=== PATIENT | female | born 2000 | race Caucasian/White ===

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

== ENCOUNTER 2021-03-01 09:47 | Observation (INO) | payer OTHER ==
[2021-03-01] MEDS ORDERED: DIPHTH,PERTUSS(ACELL),TET 0.5 ML DISP.SYRIN IM ONE ×2 (10:23→10:44)
[2021-03-01] MEDS ORDERED: MIDAZOLAM HCL 2 MG/2 ML SINGLE DOSE VIAL IM ONE (10:32)
[2021-03-01] MEDS ORDERED: LORazepam 2 MG/ML SDV VIAL IM ONE (10:34)
[2021-03-01] MEDS ORDERED: LORazepam 2 MG/ML SDV VIAL ONE ×2 (10:44→10:57)
[2021-03-01] MEDS ORDERED: LORazepam 2 MG/ML SDV VIAL IM PRN (10:54)
[2021-03-01] MEDS ORDERED: HALOPERIDOL LACTATE 5 MG/ML IM ONE (13:01)
[2021-03-01] MEDS ORDERED: HALOPERIDOL LACTATE 5 MG/ML ONE (13:37)
[2021-03-01] MEDS ORDERED: KETAMINE HCL 200 MG/20 ML VIAL IM ONE (14:31)
[2021-03-01] MEDS ORDERED: KETAMINE HCL 500 MG/10 ML VIAL ONE (14:42)
[2021-03-01 16:55] LABS: BASO % 0.2 % (0-2.0); EOS % 0.1 % (0-4.5); HEMATOCRIT 34.1 % (32.4-45.2); HEMOGLOBIN 12.2 GM/dL (10.7-15.3); LYMPH % 17.8 % (8-40); MCH 32.2 pg (25.7-33.7); MCHC 35.6 g/dl (32.0-36.0); MEAN CELL VOLUME 90.4 fl (80-96); MEAN PLT VOLUME 8.1 fl (7.5-11.1); MONO % 6.3 % (3.8-10.2); NEUT % 75.6 % (42.8-82.8); PLATELET COUNT 157 10^3/uL (134-434); RBC 3.77 M/mm3 (3.60-5.2); RDW 11.7 % (11.6-15.6); WHITE BLOOD COUNT 6.5 K/mm3 (4.0-10.0)
[2021-03-01 17:12] LABS: CALCIUM 8.3 mg/dL (8.5-10.1)
[2021-03-01 17:13] LABS: ALBUMIN 3.6 g/dl (3.4-5.0); BLOOD UREA NITROGEN 8.9 mg/dL (7-18)
[2021-03-01 17:16] LABS: CREATININE 0.7 mg/dL (0.55-1.3)
[2021-03-01 17:18] LABS: BILIRUBIN,TOTAL 0.3 mg/dL (0.2-1); TOT PROT 6.7 g/dl (6.4-8.2)
[2021-03-01] MEDS ORDERED: TRIMETHOBENZAMIDE HCL 200MG/2ML INJ IM PRN (20:18)
[2021-03-01] MEDS ORDERED: OXcarbazepine 150 MG TABLET (UD) PO SCH (22:00)
[2021-03-02] MEDS: HALOPERIDOL 5 MG TABLET PO SCH ×3 (02:09→14:23)
[2021-03-02] MEDS: BENZTROPINE MESYLATE 2 MG TABLET PO SCH ×3 (02:09→14:24)
[2021-03-02] MEDS: chlorproMAZINE HCL 100 MG TABLET PO SCH ×4 (02:09→17:22)
[2021-03-02] MEDS: OXcarbazepine 300 MG TABLET (UD) PO SCH ×2 (02:09→09:03)
[2021-03-02 02:26] VITALS: BMI 30.4
[2021-03-02] MEDS ORDERED: PT OWN MED DRAWER 7, Y5N ONE (06:22)
[2021-03-02 08:43] VITALS: BP 112/57; PULSE 107; TEMP 97.8
== END 2021-03-02 18:35 ==
LOC: JER 09:47 → JERBED 18:08 → J5S 23:57 → J7W 03-02 00:21
PROVIDERS: ADMIT Internal Medicine; ATTEND Internal Medicine
PROC: 0HQ1XZZ Repair Face Skin, External Approach (ICD-10-PCS; principal; 2021-03-01)
PROC: 3E0134Z Introduction of Serum, Toxoid and Vaccine into Subcutaneous Tissue, Percutaneous Approach (ICD-10-PCS; 2021-03-01)
DX: S01.81XA Laceration without foreign body of other part of head, initial encounter (principal); X58.XXXA Exposure to other specified factors, initial encounter; Y93.9 Activity, unspecified; Y92.122 Bedroom in nursing home as the place of occurrence of the external cause; S09.90XA Unspecified injury of head, initial encounter; F84.0 Autistic disorder; F79 Unspecified intellectual disabilities; E11.9 Type 2 diabetes mellitus without complications; N91.2 Amenorrhea, unspecified; F90.9 Attention-deficit hyperactivity disorder, unspecified type; F63.9 Impulse disorder, unspecified; F80.9 Developmental disorder of speech and language, unspecified; R45.1 Restlessness and agitation
CPT/HCPCS: 12011-25; 36415; 70450-TC; 71045-TC-FY; 72125-TC; 80053; 82550; 82553; 85025; 90471; 90715; 99285-25; C9803; G0378; U0003; U0005